=== PATIENT | male | born 2000 | race Caucasian/White ===

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

== ENCOUNTER → 2021-09-08 | Outpatient (CLI) | payer MEDICAID ==
[~2021-09-08] MED LIST changes: +PRED50TA PO; +TRAM50TA PO
--- NOTE | 2021-09-08 14:23 | RAD ---
XR LT TIBIA + FIBULA, XR EXAM OF ANKLE_LEFT 3V DATE: 09/08/2021 1:55 PM INDICATION: PAIN, TRACTOR TIRE FELL ON LEG. COMPARISON: None. FINDINGS: Bones: There is no evidence of acute fracture or dislocation. Joints: The ankle mortise is congruent. No widening of the distal tibiofibular syndesmosis. Miscellaneous: None. IMPRESSION: No evidence of acute fracture. Electronically signed by: Saleem Lawler MD (09/08/2021 2:21 PM) [id number]
== END ==
LOC: RAD 13:46
PROVIDERS: ATTEND Nurse Practitioner Family
DX: S89.92XA Unspecified injury of left lower leg, initial encounter (principal); X58.XXXA Exposure to other specified factors, initial encounter; Y93.89 Activity, other specified; Y92.89 Other specified places as the place of occurrence of the external cause; Y99.8 Other external cause status
CPT/HCPCS: 73590; 73610